=== PATIENT | male | born 1995 | race Caucasian/White ===

== ENCOUNTER 2017-02-12 15:49 | Emergency (ER) | payer OTHER ==
[~2017-02-12] VITALS: Ht 185.4 cm; Wt 154.7 kg
--- NOTE | 2017-02-12 16:08 | ED GENERAL ADULT ---
History of Present Illness General Chief Complaint: General Adult Stated Complaint: PT HAS MIGRAINE AND STOMACH PAIN Source: patient, family Exam Limitations: no limitations Vital Signs & Intake/Output Vital Signs & Intake/Output Vital Signs Date Time Temp Pulse Resp B/P Pulse O2 O2 Flow FiO2 Ox Delivery Rate 02/12 1809 96.1 56 20 129/65 100 Room Air 02/12 1553 97.1 57 18 145/78 98 Room Air Allergies Coded Allergies: Penicillins (Intermediate, hives 02/12/17) Reconcile Medications No Known Home Medications Triage Note: PT TO TRIAGE WITH C/O MIGRAINE 02/28 AND NAUSEA SINCE 1330. NO OTHER COMPLAINTS. VSS. Triage Nurses Notes Reviewed? yes HPI: 21-year-old male was brought through triaged to room 9 for an evaluation of headache that started 3-4 hours ago. aMtthew reports that he gets headaches but this one has gotten worse with nausea, photophobia and phonophobia. mom was concerned because of the family history of aneurysms on his dad sides. He denies any thunderclap headaches, blurred vision, dizziness, lightheadedness, vomiting or diarrhea. He denies any chest pain or abdominal pain. He has not taken anything at home for the pain. Pain at this time better after drinking coffee at home before he got here. (HARRIS BANUELOS APRN) Past History Travel History Traveled to [place] past 21 day No Medical History Any Pertinent Medical History? see below for history Neurological: headaches Surgical History Surgical History: none Psychosocial History What is your primary language Cymraes Tobacco Use: Never used ETOH Use: denies use Illicit Drug Use: denies illicit drug use Family History Hx Contributory? Yes (HARRIS BANUELOS APRN) Review of Systems Review of Systems Constitutional: Reports: see HPI. EENTM: Denies: no symptoms. Respiratory: Denies: no symptoms. Cardiovascular: Denies: no symptoms. GI: Reports: nausea. Genitourinary: Denies: no symptoms. Musculoskeletal: Denies: no symptoms. Skin: Denies: no symptoms. Neurological/Psychological: Reports: headache. Hematologic/Endocrine: Denies: no symptoms. Immunologic/Allergic: Denies: no symptoms. (HARRIS BANUELOS APRN) Physical Exam Physical Exam General Appearance: well developed/nourished, alert, awake, comfortable, mild distress Head: atraumatic, normal appearance Eyes: Bilateral: normal appearance, PERRL, EOMI. Ears, Nose, Throat: normal pharynx, normal ENT inspection Neck: normal inspection, full range of motion Respiratory: normal breath sounds, chest non-tender, no respiratory distress Cardiovascular: regular rate/rhythm Peripheral Pulses: 2+ radial (R), 2+ radial (L) Gastrointestinal: normal bowel sounds, soft, non-tender Back: normal inspection, normal range of motion Extremities: normal inspection, normal capillary refill, normal range of motion, no edema Neurologic/Psych: no motor/sensory deficits, awake, alert, oriented x 3, normal gait, normal mood/affect Skin: intact, normal color, warm/dry Core Measures ACS in differential dx? No CVA/TIA Diagnosis: No Severe Sepsis Present: No Septic Shock Present: No (HARRIS BANUELOS APRN) Progress Differential Diagnoses I considered the following diagnoses in my evaluation of the patient: Migraine headache, tension headache Plan of Care: Current Medications Sig/Manjit Start time Last Medication Dose Stop Time Status Admin Sodium Chloride 1,000 ML BOLUS ONE 02/12 1630 AC (Normal Saline 0.9%) 02/12 1729 Initial ED EKG: none Comments: After IV fluids, Benadryl, Toradol and Reglan the patient feels 100% better and is ready to be discharged home. (HARRIS BANUELOS APRN) Departure Departure Time of Disposition: 1816 Disposition: HOME OR SELF CARE Condition: Stable Clinical Impression Primary Impression: Migraine headache Qualifiers: Migraine type: without aura Status migrainosus presence: without status migrainosus Intractability: not intractable Qualified Code: G43.009 - Migraine without aura, not intractable, without status migrainosus Referrals: ENDER AZAR,FAVIO Love (PCP/Family) Additional Instructions: Ibuprofen 600-800 mg 3 times a day has needed for pain. Please take with food also you can take Excedrin Migraine as directed. pLEASE follow up with her primary care provider if headaches continue. Departure Forms: Customer Survey General Discharge Information Prescriptions: Current Visit Scripts No Known Home Medications (HARRIS BANUELOS APRN) PA/RESIDENTIAL GAS HEAT TECHNICIAN Co-Sign Statement Statement: ED Attending supervision documentation- [] I saw and evaluated the patient. I have also reviewed all the pertinent lab results and diagnostic results. I agree with the findings and the plan of care as documented in the PA's/RESIDENTIAL GAS HEAT TECHNICIAN's documentation. [X] I have reviewed the ED Record and agree with the PA's/RESIDENTIAL GAS HEAT TECHNICIAN's documentation. [] Additions or exceptions (if any) to the PAs/RESIDENTIAL GAS HEAT TECHNICIAN's note and plan are summarized below: [] (MARTHA AZAR,ANA Sargent) Critical Care Note Critical Care Note Critical Care Time: non-applicable (HARRIS BANUELOS APRN)
[2017-02-12 18:09] VITALS: BP 129/65
== END 2017-02-12 18:38 ==
LOC: ERH 15:49
DX: G43.909 Migraine, unspecified, not intractable, without status migrainosus (principal)
CPT/HCPCS: 96374; 96375; J1200; J1885; J2765